=== PATIENT | female | born 1955 | race Caucasian/White ===

== ENCOUNTER → 2017-06-16 | Outpatient (REF) | payer MEDICARE ==
[2017-06-16 14:11] LABS: BACTERIA, URINE SMALL AMOUNT; MICROSCOPIC EXAM PERFORMED; WBC, URINE 0-1 /hpf (0-3)
== END ==
LOC: M SMT 13:08
PROVIDERS: ATTEND Specialist
DX: N39.0 Urinary tract infection, site not specified (principal)
CPT/HCPCS: 81002; 87088; 87186; G0463

== ENCOUNTER → 2018-07-16 | Outpatient (CLI) | payer MEDICARE | LOC: M RAD 14:39 | DX: S46.011A Strain of muscle(s) and tendon(s) of the rotator cuff of right shoulder, initial encounter (principal) | CPT/HCPCS: 73221 ==

== ENCOUNTER → 2019-05-12 | Outpatient (CLI) | payer MEDICARE ==
--- NOTE | 2019-05-12 12:29 | REP ---
MRI RIGHT SHOULDER: TECHNIQUE: Axial T2 fat sat, gradient echo, sagittal oblique T2 fat sat, coronal oblique T1, T2 fat sat. Comparison is 07/16/2018. Once again, there is partial tear of the distal undersurface of the supraspinatus tendon anteriorly as well as partial tearing and fraying of the bursal surface of the tendon. Findings are quite similar to the prior study. Once again, there is no other evidence of a rotator cuff tendon tear. There are mild hypertrophic degenerative changes of the acromioclavicular joint with mild fluid in the joint. The acromion is type 1. The biceps tendon is within the bicipital groove with mild surrounding fluid, unchanged. There is no Hill-Sachs deformity. The deltoid muscle demonstrates no abnormal signal. There is, again, mild fraying of the biceps labral complex. Also again noted, is fraying or small tear of the superior aspect of the posterior labrum. There is no paralabral cyst. There are mild subchondral cystic changes in the superolateral humeral head. There is, again, mild fluid in the subacromial-subdeltoid bursae. IMPRESSION: No change since prior study of 07/16/2018. There are partial tears again seen of the supraspinatus tendon with hypertrophic degenerative changes of the acromioclavicular joint. There is fraying of the biceps labral complex and superior aspect of the posterior labrum. Mild fluid in the subacromial-subdeltoid bursae. Electronically Signed by Jonathan Carnes MD 05/12/2019 05:15 P
== END ==
LOC: M RAD 10:12
PROVIDERS: ATTEND Orthopaedic Surgery
DX: M75.111 Incomplete rotator cuff tear or rupture of right shoulder, not specified as traumatic (principal); M19.011 Primary osteoarthritis, right shoulder; S46.211A Strain of muscle, fascia and tendon of other parts of biceps, right arm, initial encounter; S43.431A Superior glenoid labrum lesion of right shoulder, initial encounter; M25.511 Pain in right shoulder; X58.XXXA Exposure to other specified factors, initial encounter; Y92.9 Unspecified place or not applicable; Y93.9 Activity, unspecified; Y99.9 Unspecified external cause status

== ENCOUNTER → 2020-08-21 | Outpatient (REF) | payer MEDICARE ==
[2020-08-21 18:25] LABS: APPEARANCE, URINE CLEAR (CLEAR); BACTERIA, URINE AUTO NEGATIVE (NEGATIVE); BILIRUBIN, URINE AUTO NEGATIVE (NEGATIVE); BLOOD, URINE BLOOD NEGATIVE (NEGATIVE); CALCIUM OXALATE CRYSTALS LARGE; COLOR, URINE YELLOW (YELLOW); GLUCOSE, URINE (UA) AUTO NEGATIVE (NEGATIVE); KETONE, URINE AUTO NEGATIVE (NEGATIVE); LEUKOCYTE ESTERASE, URINE AUTO NEGATIVE (NEGATIVE); MUCUS, URINE SMALL (NEGATIVE); NITRITE, URINE AUTO NEGATIVE (NEGATIVE); PROTEIN, URINE AUTO NEGATIVE (NEGATIVE); RBC, URINE AUTO 1 /HPF (0-3); SQUAMOUS EPITHELIAL CELL UR AU 0 /HPF (0-6); UROBILINOGEN, URINE AUTO 0.2 mg/dL (0.0-2.0); WBC, URINE AUTO 1 /HPF (0-3)
== END ==
LOC: M SMT 17:07
PROVIDERS: ATTEND Nurse Practitioner Family
DX: N39.0 Urinary tract infection, site not specified (principal)
CPT/HCPCS: 81001; 87088; 87186; G0463

== ENCOUNTER → 2021-05-07 | Outpatient (REF) | payer MEDICARE | LOC: M LAB REF 17:07 | PROVIDERS: ATTEND Internal Medicine Endocrinology, Diabetes & Metabolism | DX: E04.1 Nontoxic single thyroid nodule (principal) ==

== ENCOUNTER → 2021-05-14 | Outpatient (REF) | payer MEDICARE ==
[2021-05-14 17:43] LABS: APPEARANCE, URINE HAZY (CLEAR); BACTERIA, URINE AUTO 1+ (NEGATIVE); BILIRUBIN, URINE AUTO NEGATIVE (NEGATIVE); BLOOD, URINE BLOOD 1+ (NEGATIVE); CALCIUM OXALATE CRYSTALS MODERATE; COLOR, URINE YELLOW (YELLOW); GLUCOSE, URINE (UA) AUTO NEGATIVE (NEGATIVE); KETONE, URINE AUTO NEGATIVE (NEGATIVE); LEUKOCYTE ESTERASE, URINE AUTO 2+ (NEGATIVE); MUCUS, URINE SMALL (NEGATIVE); NITRITE, URINE AUTO NEGATIVE (NEGATIVE); PROTEIN, URINE AUTO NEGATIVE (NEGATIVE); RBC, URINE AUTO 3 /HPF (0-3); SPECIFIC GRAVITY URINE AUTO 1.021 (1.002-1.035); SQUAMOUS EPITHELIAL CELL UR AU 0 /HPF (0-6); UROBILINOGEN, URINE AUTO 0.2 mg/dL (0.0-2.0); WBC, URINE AUTO 55 /HPF (0-3)
== END ==
LOC: EEVIPCON 17:06 → M SMT 17:06
PROVIDERS: ATTEND Nurse Practitioner Family
DX: R82.90 Unspecified abnormal findings in urine (principal)

== ENCOUNTER → 2022-03-20 | Outpatient (CLI) | payer MEDICARE | LOC: M CARPUL 13:13 | PROVIDERS: ATTEND Family Medicine | DX: R06.09 Other forms of dyspnea (principal) ==

== ENCOUNTER → 2023-06-04 | Outpatient (CLI) | payer MEDICARE | LOC: M RAD 11:55 | PROVIDERS: ATTEND Orthopaedic Surgery | DX: M79.604 Pain in right leg (principal); Z96.641 Presence of right artificial hip joint ==

== ENCOUNTER → 2024-06-16 | Outpatient (CLI) | payer MEDICARE | LOC: M PLARAD 11:21 | PROVIDERS: ATTEND Orthopaedic Surgery | DX: M54.16 Radiculopathy, lumbar region (principal) ==

== ENCOUNTER → 2024-08-18 | Outpatient (CLI) | payer MEDICARE | LOC: M PLARAD 12:06 | PROVIDERS: ATTEND Physical Medicine & Rehabilitation | DX: M47.897 Other spondylosis, lumbosacral region (principal) ==